=== PATIENT | female | born 1950 | race Caucasian/White ===

== ENCOUNTER → 2022-05-18 | Outpatient (CLI) | payer MEDICARE ==
[~2022-05-18] VITALS: Ht 172.7 cm; Wt 93.4 kg
== END ==
LOC: OPSV 10:00
DX: M14.671 Charcot's joint, right ankle and foot (principal); M14.672 Charcot's joint, left ankle and foot; S92.012K Displaced fracture of body of left calcaneus, subsequent encounter for fracture with nonunion; S93.315D Dislocation of tarsal joint of left foot, subsequent encounter; S93.324D Dislocation of tarsometatarsal joint of right foot, subsequent encounter; M79.671 Pain in right foot; M79.672 Pain in left foot; M25.571 Pain in right ankle and joints of right foot; M25.572 Pain in left ankle and joints of left foot
CPT/HCPCS: 96365; 96366; J2430; J7030